=== PATIENT | male | born 1990 | race Caucasian/White ===

== ENCOUNTER 2016-05-08 17:47 | Observation (INO) | payer MEDICAID ==
[~2016-05-08] VITALS: Ht 172.7 cm; Wt 87.7 kg
[~2016-05-08 17:47] MED LIST: ANTIANXIETY; ANTIDEPRESSANT; CELEXA 20MG20 MG/TAB PO; NO HOME MEDICATIONS; WELLBUTRIN SR150 M1 PO
[2016-05-08 18:29] LABS: BASO # 0.1 (0.0-0.2); BASO % 0.4 % (0.0-2.0); EOS # 0.2 (0.0-0.7); EOS % 1.3 % (0-4.0); GRAN # 8.8 (1.4-6.5); GRAN % 73.5 % (42.2-75.2); HEMATOCRIT 45.1 % (42.0-52.0); HEMOGLOBIN 15.2 g/dl (13.5-18.0); LYMPH # 2.3 (1.2-3.4); LYMPH % 19.4 % (20.0-51.0); MEAN CELL VOLUME 85 fl (80.0-100.0); MEAN CORPUSCULAR HEMOGLOBIN 29 pg (27.0-31.0); MEAN CORPUSCULAR HGB CONC 34 g/dl (33.0-37.0); MEAN PLATELET VOLUME 10.1 fl (7.4-10.4); MONO # 0.6 (0.1-0.6); MONO % 5.2 % (1.7-9.3); PLATELET COUNT 322 K/mm3 (130-400); RED BLOOD COUNT 5.32 M/mm3 (4.20-5.60); REDCELL DISTRIBUTION WIDTH-CV 12.4 % (11.5-14.5)
[2016-05-08 18:40] LABS: ADJUSTED CALCIUM 9.3 mg/dL (8.4-10.2); ALBUMIN 4.8 gm/dL (3.5-5.0); C-REACTIVE PROTEIN 1.6 mg/dL (0.0-0.9); CALCIUM 9.9 mg/dL (8.4-10.2); CREATININE, serum 0.83 mg/dL (0.66-1.25); POTASSIUM 3.8 mmol/L (3.4-5.0); TOTAL PROTEIN 8.4 gm/dL (6.4-8.2)
[2016-05-08 19:19] LABS: PH 5 (5-8); SQUAMOUS EPITHELIAL None Seen /hpf; URINE APPEARANCE Clear; URINE BACTERIA Rare /hpf; URINE BILIRUBIN Negative (NEGATIVE); URINE BLOOD 1+ (NEGATIVE); URINE COLOR Yellow; URINE GLUCOSE Negative (NEGATIVE); URINE KETONE 1+ (NEGATIVE); URINE RBC 0-2 /hpf; URINE UROBILINOGEN Negative (NEGATIVE)
[2016-05-08 20:57] VITALS: BP 137/76; PULSE 126; TEMP 98.4
[2016-05-09 00:11] VITALS: BP 139/86; PULSE 91; TEMP 97.5
[2016-05-09] MEDS ORDERED: CELEXA 20MG20 MG/TAB PO (01:15)
[2016-05-09 04:29] VITALS: BP 132/91; PULSE 101; TEMP 98
[2016-05-09 07:47] LABS: BASO # 0.1 (0.0-0.2); BASO % 0.4 % (0.0-2.0); EOS # 0.3 (0.0-0.7); EOS % 1.7 % (0-4.0); GRAN # 10.4 (1.4-6.5); GRAN % 71.4 % (42.2-75.2); HEMATOCRIT 44.6 % (42.0-52.0); HEMOGLOBIN 14.8 g/dl (13.5-18.0); LYMPH # 2.7 (1.2-3.4); LYMPH % 18.7 % (20.0-51.0); MEAN CELL VOLUME 86 fl (80.0-100.0); MEAN CORPUSCULAR HEMOGLOBIN 29 pg (27.0-31.0); MEAN CORPUSCULAR HGB CONC 33 g/dl (33.0-37.0); MEAN PLATELET VOLUME 10.4 fl (7.4-10.4); MONO # 1.1 (0.1-0.6); MONO % 7.5 % (1.7-9.3); PLATELET COUNT 298 K/mm3 (130-400); RED BLOOD COUNT 5.17 M/mm3 (4.20-5.60); REDCELL DISTRIBUTION WIDTH-CV 12.6 % (11.5-14.5); WHITE BLOOD COUNT 14.6 K/mm3 (4.8-10.8)
[2016-05-09 08:43] LABS: CALCIUM 9.3 mg/dL (8.4-10.2); CREATININE, serum 0.8 mg/dL (0.66-1.25); POTASSIUM 3.6 mmol/L (3.4-5.0)
[2016-05-09 09:12] VITALS: BP 145/87; PULSE 111; TEMP 98.2
[2016-05-09 13:23] VITALS: BP 127/75; PULSE 111; TEMP 97.9
[2016-05-09 18:33] VITALS: BP 123/79; PULSE 108; TEMP 97.7
[2016-05-09 21:33] VITALS: BP 135/87; PULSE 98; TEMP 98.5
[2016-05-10 01:52] VITALS: BP 139/90; PULSE 99; TEMP 98.2
[2016-05-10 04:29] VITALS: BP 105/77; PULSE 84; TEMP 98.5
[2016-05-10 07:50] LABS: BASO # 0.1 (0.0-0.2); BASO % 0.5 % (0.0-2.0); EOS # 0.3 (0.0-0.7); EOS % 2.4 % (0-4.0); GRAN # 7.3 (1.4-6.5); GRAN % 68.5 % (42.2-75.2); HEMATOCRIT 44.9 % (42.0-52.0); HEMOGLOBIN 14.6 g/dl (13.5-18.0); LYMPH # 2.3 (1.2-3.4); MEAN CELL VOLUME 87 fl (80.0-100.0); MEAN CORPUSCULAR HEMOGLOBIN 28 pg (27.0-31.0); MEAN CORPUSCULAR HGB CONC 33 g/dl (33.0-37.0); MEAN PLATELET VOLUME 10.2 fl (7.4-10.4); MONO # 0.7 (0.1-0.6); MONO % 6.4 % (1.7-9.3); PLATELET COUNT 290 K/mm3 (130-400); RED BLOOD COUNT 5.18 M/mm3 (4.20-5.60); REDCELL DISTRIBUTION WIDTH-CV 12.7 % (11.5-14.5); WHITE BLOOD COUNT 10.6 K/mm3 (4.8-10.8)
[2016-05-10 08:06] LABS: CALCIUM 9.2 mg/dL (8.4-10.2); CREATININE, serum 0.69 mg/dL (0.66-1.25); POTASSIUM 3.8 mmol/L (3.4-5.0)
== END 2016-05-10 13:45 | disposition home or self-care (01) ==
LOC: COL.ER 17:47 → SURG 19:53
PROVIDERS: Nurse Practitioner; Surgery
DX: R10.31 Right lower quadrant pain (principal)
CPT/HCPCS: G0378; J1170; J2405; J7030; J7120; Q9967

== ENCOUNTER 2018-09-02 15:38 | Emergency (ER) | payer MEDICAID ==
[~2018-09-02] VITALS: Ht 170.2 cm; Wt 89.1 kg
[2018-09-02 15:42] VITALS: BP 136/88; TEMP 99.6
[2018-09-02] MEDS ORDERED: VIBERZI100 MG PO (15:56)
[2018-09-02] MEDS ORDERED: CELEXA 20MG20 MG/TAB PO (15:56)
[2018-09-02 16:56] VITALS: PULSE 98
== END 2018-09-02 16:56 | disposition home or self-care (01) ==
LOC: COL.ER 15:38
DX: R05 Cough (principal); F32.9 Major depressive disorder, single episode, unspecified; Z91.010 Allergy to peanuts

== ENCOUNTER 2020-09-26 09:36 | Day surgery (SDC) | payer MEDICARE, MEDICAID ==
[~2020-09-26] VITALS: Ht 170.2 cm; Wt 88.3 kg
[~2020-09-26 09:36] MED LIST changes: +VIBERZI100 MG PO
[2020-09-26] MEDS ORDERED: CELEXA 20MG20 MG/TAB PO (09:58)
[2020-09-26] MEDS ORDERED: FIBER GUMMIES2.5 GM PO (09:58)
[2020-09-26] MEDS ORDERED: FLONASE NASAL S16 GM NS (09:59)
[2020-09-26] MEDS ORDERED: CLARITIN 1010 MG/TAB PO (10:00)
[2020-09-26 10:25] VITALS: BP 136/97; PULSE 103; TEMP 98.4
[2020-09-26 11:40] VITALS: BP 116/81; PULSE 77; TEMP 97.8
[2020-09-26 12:00] VITALS: BP 104/61; PULSE 77
[2020-09-26 12:15] VITALS: BP 98/69; PULSE 76
[2020-09-26 12:30] VITALS: BP 103/61; PULSE 86
[2020-09-26 13:00] VITALS: BP 117/77; PULSE 89
--- NOTE | 2020-09-26 15:27 | NUR ---
PT RETURNED FROM ENDO PROCEDURE ROOM INTO BAY#3. PT ALERT AND SLEEPY. ORIENTED TO NAME AND PLACE. DOES HAVE A MENTAL DELAY, MOM IS AT BEDSIDE WITH PATIENT. LUNG CLEAR TO AUSCULTATION, HRR, BOWEL SOUNDS PRESENT. PT REQUESTED MUFFIN AND SPRITE. VSS, AFEBRILE. IVF FLOWING PATENT INTO RIGHT WRIST. WILL CONT TO MONITOR PROGRESS.
--- NOTE | 2020-09-26 15:31 | NUR ---
PT TOLERATING MUFFIN AND SPRITE. SLEEPY, APPROPRIATELY ANSWERS QUESTIONS WHEN ASKED. PT DENIES PAIN OR NAUSEA AT THIS TIME. MOM AT BEDSIDE WITH PT. WILL CONT TO MONIOR PROGRESS.
--- NOTE | 2020-09-26 15:34 | NUR ---
PT TOLERATING FOOD AND FLUIDS WITHOUT NAUSEA OR VOMITING. IV WAS DC'D TO RIGHT WRIST. PT TOLERATED WELL. DISMISSAL INSTRUCTIONS WERE EXPLAINED. PT AND MOM VOICE UNDERSTANDING. DISMISSAL SIGNED. PT WAS DISMISSED THROUGH THE PATIENT ENTRANCE TO FAMILY VEHICLE, MOM WAS DRIVING.
== END 2020-09-26 15:00 | disposition home or self-care (01) ==
LOC: SDCO 09:36
DX: K58.0 Irritable bowel syndrome with diarrhea (principal); R14.0 Abdominal distension (gaseous); K59.00 Constipation, unspecified; K62.89 Other specified diseases of anus and rectum; J30.9 Allergic rhinitis, unspecified; E78.5 Hyperlipidemia, unspecified; F32.9 Major depressive disorder, single episode, unspecified; F41.9 Anxiety disorder, unspecified; F70 Mild intellectual disabilities; Z79.899 Other long term (current) drug therapy; Z83.79 Family history of other diseases of the digestive system
CPT/HCPCS: J2704; J3010; J7030

== ENCOUNTER 2021-05-29 13:45 | Outpatient (RCR) | payer MEDICARE, MEDICAID ==
[~2021-05-29 13:45] MED LIST changes: +CLARITIN 1010 MG/TAB PO; +FIBER GUMMIES2.5 GM PO; +FLONASE NASAL S16 GM NS
== END 2021-06-14 11:53 | disposition home or self-care (01) ==
LOC: WSPT 13:45
DX: M76.892 Other specified enthesopathies of left lower limb, excluding foot (principal); M25.561 Pain in right knee